=== PATIENT | female | born 1990 | race Caucasian/White ===

== ENCOUNTER 2016-08-23 19:46 | Emergency (ER) | payer MEDICAID ==
[2016-08-23 21:23] LABS: Anion Gap 16 mmol/L; Blood Urea Nitrogen 9 mg/dL (7-17); Calcium 8.7 mg/dL (8.4-10.2); Carbon Dioxide 22 mmol/L (22-30); Chloride 100.7 mmol/L (98-107); Glucose 104 mg/dL (65-100); Potassium 3.8 mmol/L (3.6-5.0); Sodium 135 mmol/L (137-145)
[2016-08-23 21:30] LABS: Hematocrit 39.4 % (30.3-42.9); Hemoglobin 13.1 gm/dl (10.1-14.3); Mean Corpuscular HGB Conc 33 % (30-34); Mean Corpuscular Hemoglobin 29 pg (28-32); Mean Corpuscular Volume 87 fl (79-97); Platelet Count 217 K/mm3 (140-440); Red Blood Count 4.51 M/mm3 (3.65-5.03); White Blood Count 8.9 K/mm3 (4.5-11.0)
[2016-08-23] MEDS ORDERED: MOTRIN ONE (22:50)
[2016-08-23 22:58] LABS: Bacteria,Urine 1+ /HPF (Negative); Mucus,Urine FEW /HPF
[2016-08-23 23:03] LABS: Bilirubin,Urine NEG (Negative); Blood,Urine NEG (Negative); Ketones,Urine 20 mg/dL (Negative); Leukocyte Esterase,Urine LG (Negative); Nitrite,Urine NEG (Negative); Protein,Urine <15 mg/dL mg/dL (Negative)
[2016-08-24] MEDS ORDERED: ROBITUSSIN PO ONE (02:14)
[2016-08-24] MEDS ORDERED: TYLENOL #3 PO ONE (02:14)
--- NOTE | 2016-08-24 02:19 | Emergency Department Report ---
HPI - General Chief Complaint: Headache Time Seen by Provider: 08/24/16 02:09 - HPI HPI: Patient is a 25-year-old female approximately 35 weeks gestation followed by [facility] [facility] who presents to ED complaining of left-sided head and facial pain 1 week. Patient states for about a week she has been having throbbing type pain starting at the top of her left. Her temperature is left facial. Patient admits a nonproductive coughing with yellow productive rhinorrhea. She admits good movement but denies vaginal bleeding or leaking of fluids She denies fevers/chills/nausea/vomiting/abdominal pain ED Past Medical Hx - Past Medical History Hx Headaches / Migraines: Yes Hx Asthma: Yes Additional medical history: sickle cell trait - Social History Smoking Status: Never Smoker Substance Use Type: None - Medications Home Medications: Home Medications Medication Instructions Recorded Confirmed Last Taken Type Acetamin/Codeine 120-12Mg/5 ml 5 ml PO TID PRN #60 ml 08/24/16 Unknown Rx [Tylenol/Codeine] Amoxicillin/K Clav Tab [Augmentin 1 tab PO Q12HR #20 tab 08/24/16 Unknown Rx 875 mg] ED Review of Systems ROS: Stated complaint: HEADACHE Other details as noted in HPI Constitutional: denies: chills, fever Eyes: denies: eye pain, eye discharge, vision change ENT: denies: ear pain, throat pain, dental pain, hearing loss, epistaxis, congestion Respiratory: cough. denies: shortness of breath, wheezing Cardiovascular: denies: chest pain, palpitations Endocrine: no symptoms reported Gastrointestinal: denies: abdominal pain, nausea, vomiting, diarrhea, constipation, hematemesis Genitourinary: denies: urgency, dysuria, discharge Musculoskeletal: denies: back pain, joint swelling, arthralgia Skin: denies: rash, lesions Neurological: denies: headache, weakness, paresthesias Psychiatric: denies: anxiety, depression Hematological/Lymphatic: denies: easy bleeding, easy bruising Physical Exam - Physical Exam Vital Signs: Vital Signs 08/23/16 20:11 Temperature 98.4 F Pulse Rate 106 H Respiratory 20 Rate Blood Pressure 123/89 O2 Sat by Pulse 100 Oximetry Physical Exam: GENERAL: Alert and oriented x3, no apparent distress, Normal Gait, atraumatic. HEAD: Head is normocephalic and a-traumatic. EYES: Extra ocular muscles are intact. Pupils are equal, round, and reactive to light and accommodation. EARS: symetrical, atraumatic, left tragus tenderness , ear canal clear and moderate cerumen, left sided tympanic membrance slightly inflamed. gross auditory nml bilaterally. No TMJ tenderness NOSE: Nose symetrical, Nontender,Nares appeared normal. Left-sided maxillary tenderness MOUTH:Mouth is well hydrated and without lesions. Tonsils nonerythematous or swollen, Uvula midline, Tongue not elevated. Mucous membranes are moist. Posterior pharynx clear, no exudate or lesions. Patent airways. NECK: Supple. Non edematous, No carotid bruits. No lymphadenopathy or thyromegaly. LUNGS: Symetrical with respiration, No wheezing, no rales or crackles, CTAB. HEART: S1, S2 present, regular rate and rhythm without murmur, no rubs, no gallops. ABDOMEN: Gravid uterus was noted,Positive bowel sounds, soft, and non- distended. . Nontender to palpation on all Quadrants, NO CVA tenderness. EXTREMITIES/MUSCULOSKELETAL: No cyanosis, clubbing, rash, lesions or edema. Full ROM bilaterally. UE/LE Pulses 2+ bilaterally. NEUROLOGIC: No focal Deficit, Cranial nerves II through XII are grossly intact. No loss of sensation, PSYCHIATRIC: Mood is congruent with affect, denies suicidal or homicidal ideations. SKIN: Warm and dry, No lesions, No ulceration or induration present. ED Course Vital Signs 08/23/16 20:11 Temperature 98.4 F Pulse Rate 106 H Respiratory 20 Rate Blood Pressure 123/89 O2 Sat by Pulse 100 Oximetry ED Medical Decision Making - Lab Data Result diagrams: 08/23/16 20:55 08/23/16 20:55 - Medical Decision Making 25-year-old at 35 registration presents for UTI/sinusitis. ED course: Patient received Robitussin and Tylenol 3 CBC within normal limits. Normal limits urinalysis shows UTI Discussed findings with patient. Discussed treatment of UTI as well as sinusitis. Discussed woman's about his Augmentin which however both UTI as well as sinusitis. Discussed to medication of Tylenol with codeine to help with cough as well as pain associated with sinusitis. Discussed the patient and follow-up with her [employer] doctor. Critical care attestation.: If time is entered above; I have spent that time in minutes in the direct care of this critically ill patient, excluding procedure time. ED Disposition Clinical Impression: UTI (urinary tract infection) during Sinusitis Qualifiers: Sinusitis location: maxillary Chronicity: subacute Qualified Code(s): J01.00 - Acute maxillary sinusitis, unspecified UTI (urinary tract infection) Qualifiers: Urinary tract infection type: acute cystitis Hematuria presence: with hematuria Qualified Code(s): N30.01 - Acute cystitis with hematuria Disposition: DISCHARGED TO HOME OR SELFCARE Is pt being admited?: No Does the pt Need Aspirin: No Condition: Stable Instructions: Otitis Media (ED), Sinusitis (ED), Urinary Tract Infection in Women (ED) Additional Instructions: Get enough rest. Increase hydration take to 10 glasses of water per day. Follow-up which her [employer]. Prescriptions: Acetamin/Codeine 120-12Mg/5 ml [Tylenol/Codeine] 5 ml PO TID PRN #60 ml PRN Reason: Pain Amoxicillin/K Clav Tab [Augmentin 875 mg] 1 tab PO Q12HR #20 tab Referrals: PRIMARY CARE, [Primary Care Provider] - 3-5 Days Forms: Work/School Release Form(ED) Time of Disposition: 02:25
[2016-08-24 02:55] VITALS: BP 120/87
== END 2016-08-24 03:00 | disposition home or self-care (01) ==
LOC: ED 19:46
DX: O23.43 Unspecified infection of urinary tract in pregnancy, third trimester (principal); O99.513 Diseases of the respiratory system complicating pregnancy, third trimester; J32.9 Chronic sinusitis, unspecified; N30.01 Acute cystitis with hematuria; J45.909 Unspecified asthma, uncomplicated; G43.909 Migraine, unspecified, not intractable, without status migrainosus; Z3A.38 38 weeks gestation of pregnancy
CPT/HCPCS: 36415; 80048; 81001; 85027; 99283

== ENCOUNTER 2016-09-21 07:48 | Inpatient (IN) | payer MEDICAID ==
[2016-09-21] MEDS ORDERED: LACTATED RINGERS 1,000 ML ONE (09:20)
--- NOTE | 2016-09-21 09:24 | History and Physical Report ---
History of Present Illness Date of examination: 09/21/16 Date of admission: 09/21/16 08:33 Chief complaint: C/O contractions History of present illness: 25 y/o , with transfer of care to [facility] at 26 weeks gestation, Hx of trich with Neg JOSE. 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 Past History Past Medical History: no pertinent history Past Surgical History: other (Hernia repair) [employer] History: herpes, trichomonas Family/Genetic History: none Social history: no significant social history - Obstetrical History Expected Date of Delivery: 09/23/16 Actual Gestation: 39 Week(s) 5 Day(s) : 1 Para: 0 Hx # Term Pregnancies: 0 Number of Pregnancies: 0 Spontaneous Abortions: 0 Number of Living Children: 0 Medications and Allergies Allergies Allergy/AdvReac Type Severity Reaction Status Date / Time No Known Allergies Allergy Verified 08/23/16 22:56 Home Medications Medication Instructions Recorded Confirmed Last Taken Type Acetamin/Codeine 120-12Mg/5 ml 5 ml PO TID PRN #60 ml 08/24/16 Unknown Rx [Tylenol/Codeine] Amoxicillin/K Clav Tab [Augmentin 1 tab PO Q12HR #20 tab 08/24/16 Unknown Rx 875 mg] Review of Systems All systems: negative - Vital Signs Vital signs: Vital Signs Pulse Pulse Ox 96 H 100 09/21/16 08:02 09/21/16 08:02 Temp Pulse Resp BP Pulse Ox 86 139/78 91 09/21/16 08:41 09/21/16 08:41 09/21/16 08:23 - Physical Exam Breasts: Positive: deferred Cardiovascular: Regular rate Lungs: Positive: Clear to auscultation Abdomen: Positive: soft Genitourinary (Female): Positive: normal external genitalia Vulva: both: normal - Obstetrical FHR: category 1 Uterine Contraction Monitor Mode: External Cervical Dilatation: 5 Cervical Effacement Percentage: 70 station: 0 Uterine Contraction Pattern: Regular Uterine Contraction Intensity: Moderate Results All other labs normal. Assessment and Plan A: Active labor @ 39.5 weeks P: Expect Epidural
[2016-09-21] MEDS ORDERED: SUBLIMAZE IV PRN (09:30)
[2016-09-21] MEDS: LACTATED RINGERS 1,000 ML IV SCH ×2 (09:46→10:22)
[2016-09-21] MEDS ORDERED: PITOCin/NS 20 UNIT/1000ML DRIP 20 UNITS/1,000 ML BAG IV SCH (10:00)
[2016-09-21] MEDS ORDERED: BRETHINE IVP PRN (10:00)
[2016-09-21] MEDS ORDERED: MINERAL OIL PO PRN (10:00)
[2016-09-21] MEDS ORDERED: PITOCin/NS 30 UNIT/500ML 30 UNITS/500 ML BAG IV SCH ×2 (10:00)
[2016-09-21] MEDS ORDERED: ePHEDrine SULFATE IV PRN (10:00)
[2016-09-21] MEDS ORDERED: BRETHINE SUB-Q PRN (10:00)
[2016-09-21] MEDS ORDERED: XYLOCAINE 2% INFILTRATI ONE (10:00)
[2016-09-21] MEDS ORDERED: NARCAN 2 MG/2 ML IV PRN (11:38)
--- NOTE | 2016-09-21 11:38 | Anesthesia Consultation ---
Anesthesia Consult and Med Hx Date of service: 09/21/16 - Airway Anesthetic Teeth Evaluation: Good ROM Head & Neck: Adequate Mental/Hyoid Distance: Adequate Mallampati Class: Class II Intubation Access Assessment: Possibly Difficult - Pulmonary Exam CTA: Yes - Cardiac Exam Cardiac Exam: RRR - Pre-Operative Health Status ASA Pre-Surgery Classification: ASA2 Proposed Anesthetic Plan: Epidural, Spinal (p) - Pulmonary Hx Asthma: Yes COPD: No Hx Pneumonia: No - Cardiovascular System Hx Hypertension: No - Central Nervous System Hx Seizures: No Hx Psychiatric Problems: Yes (bipolar disorder) - Endocrine Hx End Stage Renal Disease: No Hx Hypothyroidism: No Hx Hyperthyroidism: No - Hematic Hx Anemia: No Hx Sickle Cell Disease: No - Additional Comments Anesthesia Medical History Comments: PLT 217. IUP in Labor 26 weeks
[2016-09-21] MEDS ORDERED: fentaNYL-BUPIV 2 MCG/ML-0.125% 200 MCG/100 ML BAG EPIDURAL SCH (12:00)
--- NOTE | 2016-09-21 14:29 | Procedure Note ---
OB Delivery Note - Delivery Date of Delivery: 09/21/16 Surgeon: AYAKA CORDERO Estimated blood loss: 200cc - Vaginal Delivery presentation: vertex Delivery position: OA Intrapartum events: none Delivery induction: none Delivery augmentation: pitocin Delivery monitor: external FHT, external uterine Route of delivery: Delivery placenta: spontaneous Delivery cord: 3 umbilical vessels Episiotomy: none Delivery laceration: other (first degree bilateral labial lac, repaired 3-0 vicryl) Anesthesia: epidural Delivery comments: of a viable male 7#14 oz over intact perineum @ 1344 on 09/21/16. Bilateral Labial lacerations repaired with 3-0 vicryl. Placenta delivered 3 VCI. FF @ U. Mother and baby doing well. - Infant A at 1 minute: 8 at 5 minutes: 9 Gender: Male (7# 14)
[2016-09-21] MEDS ORDERED: DERMOPLAST TP PRN (14:31)
[2016-09-21] MEDS ORDERED: NORCO 5/325 PO PRN (14:31)
[2016-09-21] MEDS ORDERED: TYLENOL PO PRN (14:31)
[2016-09-21] MEDS ORDERED: MILK OF MAGNESIA PO PRN (14:31)
[2016-09-21] MEDS ORDERED: BENADRYL PO PRN (14:31)
[2016-09-21] MEDS ORDERED: PHENERGAN PO PRN (14:31)
[2016-09-21] MEDS ORDERED: DULCOLAX PR PRN (14:31)
[2016-09-21] MEDS ORDERED: LANSINOH TP PRN (14:31)
[2016-09-21] MEDS ORDERED: SODIUM CHLORIDE FLUSH SYRINGE 10 ML IV NR (15:00)
[2016-09-21 16:17] LABS: Hematocrit 43.1 % (30.3-42.9); Hemoglobin 14.5 gm/dl (10.1-14.3); Mean Corpuscular HGB Conc 34 % (30-34); Mean Corpuscular Hemoglobin 29 pg (28-32); Mean Corpuscular Volume 87 fl (79-97); Platelet Count 171 K/mm3 (140-440); Red Blood Count 4.95 M/mm3 (3.65-5.03); Red Cell Distribution Width 14.6 % (13.2-15.2); White Blood Count 17.7 K/mm3 (4.5-11.0)
[2016-09-21] MEDS: MOTRIN PO SCH (17:36)
[2016-09-22] MEDS: MOTRIN PO SCH ×3 (00:37→12:22)
[2016-09-22 07:03] LABS: Hematocrit 38.7 % (30.3-42.9); Hemoglobin 12.9 gm/dl (10.1-14.3)
--- NOTE | 2016-09-22 07:45 | Progress Note ---
Subjective Date of service: 09/22/16 Interval history: 1st day after normal vaginal delivery Patient is in the bed, comfortable. Pain is well controlled with pain meds. Ambulated well. No residual neurological deficit. No anesthesia complications Objective - Constitutional Vitals: Vital Signs - 12hr 09/21/16 09/22/16 21:10 01:00 Temperature 98.5 F 98.4 F Pulse Rate [ 100 H 97 H From Monitor] Respiratory 20 20 Rate Blood Pressure 128/80 116/71 [Left Arm] - Labs CBC & Chem 7: 09/22/16 06:20 Labs: Abnormal lab results 09/21/16 Range/Units 15:52 WBC 17.7 H (4.5-11.0) K/mm3 Hgb 14.5 H (10.1-14.3) gm/dl Hct 43.1 H (30.3-42.9) %
--- NOTE | 2016-09-22 09:51 | Progress Note ---
Assessment and Plan A: PPD1 S/P VSS P: Routine care Plan for d/c today Nexplanon for contraception Subjective - Subjective Date of service: 09/22/16 Principal diagnosis: PPD1 Interval history: 25 y/o , with transfer of care to [facility] at 26 weeks gestation, Hx of trich with Neg JOSE. 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 Delivered on 09/21/16 @ 1344. Patient reports: appetite normal, voiding normally, pain well controlled, ambulating normally [place]: doing well Objective - Vital Signs Latest vital signs: Vital Signs Temp Pulse Pulse Resp BP BP Pulse Ox 09/22/16 08:55 98.2 F 76 18 104/64 09/22/16 01:00 98.4 F 97 H 20 116/71 09/21/16 21:10 98.5 F 100 H 20 128/80 09/21/16 17:36 20 09/21/16 16:30 99.9 F H 95 H 20 123/66 09/21/16 16:00 97.7 F 18 09/21/16 15:28 100 H 149/71 09/21/16 15:18 98 H 99 09/21/16 15:13 115 H 98 09/21/16 15:08 93 H 98 09/21/16 15:03 89 98 09/21/16 14:58 91 H 98 09/21/16 14:57 88 122/78 09/21/16 14:53 90 99 09/21/16 14:36 101 H 96 09/21/16 14:31 100 H 97 09/21/16 14:28 102 H 142/86 09/21/16 14:26 103 H 99 09/21/16 14:21 110 H 99 09/21/16 14:16 109 H 98 09/21/16 14:12 109 H 130/72 09/21/16 14:11 105 H 99 09/21/16 14:05 97.5 F L 20 09/21/16 13:58 90 132/64 09/21/16 13:43 133/65 09/21/16 13:40 99 H 98 09/21/16 13:28 100 H 139/64 09/21/16 13:16 101 H 100 09/21/16 13:12 92 H 131/81 09/21/16 13:11 99 H 99 09/21/16 13:06 97 H 99 09/21/16 13:01 90 99 09/21/16 12:58 98 H 134/80 09/21/16 12:56 90 98 09/21/16 12:51 112 H 99 09/21/16 12:46 103 H 99 09/21/16 12:43 99 H 111/75 09/21/16 12:41 101 H 100 09/21/16 12:36 106 H 100 09/21/16 12:31 99 H 99 09/21/16 12:29 59 L 61 L 09/21/16 12:26 94 H 99 09/21/16 12:18 89 100 09/21/16 12:15 85 92 09/21/16 12:13 90 99 09/21/16 12:11 89 122/66 09/21/16 12:10 87 122/66 09/21/16 12:08 79 118/63 100 09/21/16 12:06 81 113/61 09/21/16 12:04 80 98/56 09/21/16 12:03 79 97 09/21/16 12:01 83 98/57 09/21/16 12:00 82 94/50 09/21/16 11:58 89 95 09/21/16 11:57 93 H 95/52 09/21/16 11:55 91 H 97/55 09/21/16 11:54 100 H 105/57 09/21/16 11:53 97 H 99 09/21/16 11:51 97 H 114/56 09/21/16 11:50 103 H 113/59 09/21/16 11:48 93 H 123/62 99 09/21/16 11:46 96 H 142/68 09/21/16 11:44 95 H 153/67 91 09/21/16 11:43 69 L 09/21/16 11:41 110 H 140/75 09/21/16 11:40 100 H 131/68 09/21/16 11:38 99 H 141/71 09/21/16 11:37 91 H 94 09/21/16 11:36 101 H 133/66 94 09/21/16 11:34 120 H 129/81 09/21/16 11:32 94 H 96 09/21/16 11:30 122 H 140/58 94 09/21/16 11:28 110 H 160/80 09/21/16 11:27 97 H 97 09/21/16 11:25 102 H 135/68 09/21/16 11:24 83 137/65 09/21/16 11:22 100 H 140/81 97 09/21/16 11:20 85 139/84 09/21/16 11:19 84 09/21/16 11:17 102 H 98 09/21/16 11:16 92 H 154/73 09/21/16 11:14 101 H 158/85 09/21/16 11:12 80 147/66 98 09/21/16 11:07 102 H 147/105 98 09/21/16 11:03 95 H 138/85 09/21/16 11:02 94 H 98 09/21/16 11:01 88 145/87 09/21/16 11:00 86 142/77 09/21/16 10:58 82 138/84 09/21/16 10:57 103 H 97 09/21/16 10:29 99 H 98 09/21/16 10:24 94 H 98 09/21/16 10:19 93 H 97 09/21/16 10:14 99 H 98 09/21/16 09:53 96.2 F L 91 H 18 97 Intake and Output 09/21/16 09/22/16 09/22/16 22:59 06:59 14:59 Intake Total 245 480 360 Output Total 500 Balance 245 480 -140 Intake: IV 125 PITOCin/NS 20 UNIT/1000ML 125 DRIP 20 units In 1,000 ml @ 125 mls/hr IV DIRECT IVETT Rx#:[id number] Oral 120 480 Intake, Free Water 360 Output: Urine 500 Void 500 Other: Total, Intake Amount 120 240 Total, Output Amount 500 # Voids Void 1 1 - Exam Cardiovascular: Present: Regular rate Lungs: Present: Normal air movement Vulva: both: normal (scant lochia) Uterus: Present: fundal height below umbilicus Extremities: Present: normal Deep Tendon Reflex Grade: Normal +2 - Labs Labs: Abnormal lab results 09/21/16 Range/Units 15:52 WBC 17.7 H (4.5-11.0) K/mm3 Hgb 14.5 H (10.1-14.3) gm/dl Hct 43.1 H (30.3-42.9) %
--- NOTE | 2016-09-22 09:55 | Discharge Summary ---
Providers - Providers Date of Admission: 09/21/16 08:33 Date of discharge: 09/22/16 Attending physician: XOCHILT ABBASI MD Primary care physician: XOCHILT ABBASI MD Hospitalization Reason for admission: active labor Delivery: Laceration: 1st degree Other procedures: none complications: none Discharge diagnosis: IUP at term delivered [place] baby: male Hospital course: uneventful Condition at discharge: Good Disposition: DISCHARGED TO HOME OR SELFCARE Plan - Provider Discharge Summary Activity: routine, no sex for 6 weeks, no heavy lifting 4 weeks, no strenuous exercise Diet: routine Instructions: routine Additional instructions: [] Smoking cessation referral if applicable(refer to patient education folder for contact #) [] Refer to [facility]'s [facility] Booklet Call your doctor immediately for: * Fever > 100.5 * Heavy vaginal bleeding ( >1 pad per hour) * Severe persistent headache * Shortness of breath * Reddened, hot, painful area to leg or breast * Drainage or odor from incision. * Keep incision clean and dry at all times and follow doctor's instructions regarding bathing/showering - Follow up plan Follow up: [facility] [Provider Group] - 6 Weeks
[2016-09-22 17:55] VITALS: BP 100/56
== END 2016-09-22 17:00 | disposition home or self-care (01) | DRG 775 ==
LOC: TRG 07:48 → LD 08:33 → OB 16:19
PROVIDERS: ADMIT Obstetrics & Gynecology; ATTEND Obstetrics & Gynecology
PROC: 10E0XZZ Delivery of Products of Conception, External Approach (ICD-10-PCS; principal; 2016-09-21)
PROC: 0HQ9XZZ Repair Perineum Skin, External Approach (ICD-10-PCS; 2016-09-21)
PROC: 00HU33Z Insertion of Infusion Device into Spinal Canal, Percutaneous Approach (ICD-10-PCS; 2016-09-21)
PROC: 3E0R3CZ (ICD-10-PCS; 2016-09-21)
DX: O75.89 Other specified complications of labor and delivery (principal); O70.0 First degree perineal laceration during delivery; F31.9 Bipolar disorder, unspecified; Z3A.39 39 weeks gestation of pregnancy; Z37.0 Single live birth; Z86.19 Personal history of other infectious and parasitic diseases
CPT/HCPCS: 36415; 85014; 85018; 85027; 86850; 86900; 86901; 99211; A6250; G0463; J2590; J3010; J7120